=== PATIENT | female | born 1995 | race Caucasian/White ===

== ENCOUNTER 2017-07-26 19:37 | Emergency (ER) | payer SELFPAY ==
[2017-07-26 19:37] VITALS: BMI 22.6
[2017-07-26 21:11] LABS: HCG,QUALITATIVE URINE POSITIVE (NEGATIVE)
[2017-07-26 21:12] LABS: SQUAMOUS EPITHIAL 1 /hpf (0-5); URINE BACTERIA MOD (<OCC); URINE BILIRUBIN NEGATIVE (NEGATIVE); URINE BLOOD NEGATIVE (NEGATIVE); URINE CLARITY Clear (Clear); URINE COLOR Yellow (YELLOW); URINE GLUCOSE (UA) NORMAL (Normal); URINE LEUKOCYTE ESTERASE TRACE Leu/uL (Negative); URINE NITRATE POSITIVE (NEGATIVE); URINE PROTEIN NEGATIVE (NEGATIVE); URINE UROBILINOGEN NORMAL mg/dL (0.2-1.0)
[2017-07-26] MEDS ORDERED: Alum-Mag Hydrox-Simethicone Susp (30 mL) PO STA (22:13)
--- NOTE | 2017-07-26 22:13 | C.PDOC ---
History Of Present Illness 21yo female, , presents to ER with complaints of epigastric abdominal pain since last night. She reports the pain is constant and non-radiating. She states the pain is unchanged with PO intake or changes in position. She also states she has not had such symptoms in the past. Patient denies any fever, chills, vomiting or diarrhea. No other complaints. Time Seen by Provider: 07/26/17 21:55 Chief Complaint (Nursing): Abdominal Pain History Per: Patient History/Exam Limitations: no limitations Onset/Duration Of Symptoms: Days Current Symptoms Are (Timing): Still Present Location Of Pain/Discomfort: Epigastric Radiation Of Pain To:: None Quality Of Discomfort: "Pain" Associated Symptoms: denies: Fever, Chills, Nausea, Vomiting, Diarrhea Exacerbating Factors: None Alleviating Factors: None Abnormal Vaginal Bleeding: No : 3 Para: 2 Past Medical History Reviewed: Historical Data, Nursing Documentation, Vital Signs Vital Signs: Last Vital Signs Temp 98.2 F 07/27/17 00:09 Pulse 82 07/27/17 00:09 Resp 20 07/27/17 00:09 BP 90/63 L 07/27/17 00:09 Pulse Ox 99 07/27/17 00:09 - Medical History PMH: No Chronic Diseases Denies: Chronic Kidney Disease Surgical History: No Surg Hx - [facility] Procedures MANUAL ASSIST DELIV NEC (09/11/13) Family History: States: Unknown Family Hx - Social History Hx Tobacco Use: No Hx Alcohol Use: No Hx Substance Use: No - Immunization History Hx Tetanus Toxoid Vaccination: No Hx Influenza Vaccination: No Hx Pneumococcal Vaccination: No Review Of Systems Except As Marked, All Systems Reviewed And Found Negative. Constitutional: Negative for: Fever, Chills Gastrointestinal: Positive for: Abdominal Pain. Negative for: Nausea, Vomiting , Diarrhea Physical Exam - Physical Exam Appears: Non-toxic, No Acute Distress Skin: Normal Color, Warm Head: Atraumatic, Normacephalic Eye(s): bilateral: Normal Inspection Neck: Supple Chest: Symmetrical Cardiovascular: Rhythm Regular Respiratory: Normal Breath Sounds Gastrointestinal/Abdominal: Bowel Sounds, Soft, Tenderness (epigastric; no Marroquin's sign), No Guarding, No Rebound, Other (gravid uterus) Extremity: Normal ROM Neurological/Psych: Oriented x3, Normal Speech, Normal Cognition ED Course And Treatment O2 Sat by Pulse Oximetry: 100 (RA) Pulse Ox Interpretation: Normal Medical Decision Making Medical Decision Making: Impression: Gastritis, GERD -- Labs -- Maalox 30mg PO -- Viscous lidocaine 2% 15 ml PO Time: 2235 Patient reports feeling better after GI cocktail. Stable for discharge home, informed to follow up with PCP as well as OBGYN in 1-2 days. Disposition - Disposition Referrals: Umair Presley MD [Staff Provider] - Disposition: HOME/ ROUTINE Disposition Time: 06:57 Condition: GOOD Prescriptions: Pantoprazole [Protonix] 40 mg PO DAILY #14 ect Instructions: Gastritis, How to Adapt to Physical Changes During , [place] Diet Forms: [employer] (Citizen Of [place]) Print Language: MOZAMBICAN - Clinical Impression Clinical Impression: Gastritis - Scribe Statement The provider has reviewed the documentation as recorded by the Scribe (Twila Turpin) Provider Attestation: All medical record entries made by the Scribe were at my direction and personally dictated by me. I have reviewed the chart and agree that the record accurately reflects my personal performance of the history, physical exam, medical decision making, and the department course for this patient. I have also personally directed, reviewed, and agree with the discharge instructions and disposition.
[2017-07-26] MEDS ORDERED: Aluminum Hydroxide/Magnesium Hydroxide Susp (30 mL) ONE (22:23)
[2017-07-27 00:10] VITALS: BP 90/63; PULSE 82; RESP 20; TEMP 98.2
[2017-07-27 06:58] VITALS: O2SAT 100
== END 2017-07-27 00:11 | disposition home or self-care (01) ==
LOC: C.ER 19:37
DX: O26.891 Other specified pregnancy related conditions, first trimester (principal); K29.70 Gastritis, unspecified, without bleeding; Z3A.12 12 weeks gestation of pregnancy

== ENCOUNTER 2017-09-05 02:17 | Emergency (ER) | payer SELFPAY ==
[2017-09-05 02:17] VITALS: BMI 22.6
[2017-09-05 02:35] VITALS: O2SAT 100
--- NOTE | 2017-09-05 03:20 | C.PDOC ---
History Of Present Illness 22-year-old A1 female, approximately 16 weeks , presents to the ED complaining of right-sided abdominal pain for the past 7 hours. Patient reports there has been no prior ultrasound of this . She describes pain as dull and achy, minor, colicky in nature. Patient denies any dysuria, or vaginal discharge or bleeding. Time Seen by Provider: 09/05/17 03:05 Chief Complaint (Nursing): Abdominal Pain History Per: Patient History/Exam Limitations: no limitations Onset/Duration Of Symptoms: Hrs Current Symptoms Are (Timing): Still Present Quality Of Discomfort: Dull, Aching : 4 Para: 2 Miscarriage: 1 Past Medical History Reviewed: Historical Data, Nursing Documentation, Vital Signs Vital Signs: Last Vital Signs Temp 97.6 F 09/05/17 04:31 Pulse 79 09/05/17 04:31 Resp 20 09/05/17 04:31 BP 100/63 09/05/17 04:31 Pulse Ox 100 09/05/17 04:31 - Medical History PMH: No Chronic Diseases Denies: Chronic Kidney Disease Surgical History: No Surg Hx - [facility] Procedures MANUAL ASSIST DELIV NEC (09/11/13) Family History: States: Unknown Family Hx - Social History Hx Tobacco Use: No Hx Alcohol Use: No Hx Substance Use: No - Immunization History Hx Tetanus Toxoid Vaccination: No Hx Influenza Vaccination: No Hx Pneumococcal Vaccination: No Review Of Systems Except As Marked, All Systems Reviewed And Found Negative. Constitutional: Negative for: Fever, Chills Respiratory: Negative for: Shortness of Breath Gastrointestinal: Positive for: Abdominal Pain. Negative for: Vomiting, Diarrhea Genitourinary: Negative for: Dysuria, Vaginal Discharge, Vaginal Bleeding Physical Exam - Physical Exam Appears: Non-toxic, No Acute Distress Skin: Warm, Dry Head: Atraumatic, Normacephalic Eye(s): bilateral: Normal Inspection, PERRL, EOMI Oral Mucosa: Moist Neck: Normal ROM, Supple Chest: Symmetrical Cardiovascular: Rhythm Regular, No Murmur Respiratory: Normal Breath Sounds, No Accessory Muscle Use, No Wheezing Gastrointestinal/Abdominal: Soft, No Guarding, Other (gravid uterus) Pelvic: Other (deferred) Extremity: Bilateral: Atraumatic, Normal Color And Temperature, Normal ROM Neurological/Psych: Oriented x3, Normal Speech ED Course And Treatment - Laboratory Results Lab Interpretation: Abnormal (UA 2100 WBCs) O2 Sat by Pulse Oximetry: 100 (RA) Pulse Ox Interpretation: Normal Reevaluation Time: 04:12 Reassessment Condition: Improved Medical Decision Making Medical Decision Making: Time: 3:13 Initial Plan: * Tylenol 975 mg PO * Urinalysis Patient offered ultrasound at 7am, low suspicion of ectopic UTI , start MAcrobid will return after 7AM for eval PRN Disposition Doctor Will See Patient In The: Office Counseled Patient/Family Regarding: Studies Performed, Diagnosis - Disposition Referrals: [facility] [Outside] [place] [facility] [Outside] Disposition: HOME/ ROUTINE Disposition Time: 04:13 Condition: GOOD Additional Instructions: infeccion en la orina Elaine Macrobid 100 mg dos veces al brayden por 7 yost Cuidados prenatales Regressa despues de las 7 de las manana para evaluacion con Ultrasonido del embarraso O' sigue en [facility] para seguir dora cuidados prenatales. Prescriptions: Nitrofurantoin Macrocrystals [Macrobid] 100 mg PO BID #14 cap Instructions: Screenings, Acute Cystitis (DC) Forms: [employer] ([place]) Print Language: TURKISH - Clinical Impression Clinical Impression: UTI in - Scribe Statement The provider has reviewed the documentation as recorded by the Talitaibjung Templeton Provider Attestation: All medical record entries made by the Scribe were at my direction and personally dictated by me. I have reviewed the chart and agree that the record accurately reflects my personal performance of the history, physical exam, medical decision making, and the department course for this patient. I have also personally directed, reviewed, and agree with the discharge instructions and disposition.
[2017-09-05 03:32] LABS: SQUAMOUS EPITHIAL 23 /hpf (0-5); URINE BILIRUBIN NEGATIVE (NEGATIVE); URINE BLOOD 2+ (NEGATIVE); URINE CLARITY Hazy (Clear); URINE COLOR Yellow (YELLOW); URINE GLUCOSE (UA) NORMAL (Normal); URINE LEUKOCYTE ESTERASE 3+ Leu/uL (Negative); URINE PROTEIN 2+ mg/dL (NEGATIVE); URINE UROBILINOGEN NORMAL mg/dL (0.2-1.0); WBC CLUMPS MANY /hpf
[2017-09-05 04:33] VITALS: BP 100/63; PULSE 79; RESP 20; TEMP 97.6
== END 2017-09-05 04:33 | disposition home or self-care (01) ==
LOC: C.ER 02:17
DX: O23.42 Unspecified infection of urinary tract in pregnancy, second trimester (principal); Z3A.16 16 weeks gestation of pregnancy